=== PATIENT | male | born 1970 | race Caucasian/White ===

== ENCOUNTER 2016-08-21 14:24 | Emergency (ER) | payer MEDICAID ==
[~2016-08-21 14:24] MED LIST: ADDERALL 30 MG30 MG; LORTAB 5/500 TA1 TAB PO; PERCOCET 5/3251 TAB; PERCOCET 5/3251 TAB PO; SEROQUEL300 MG; XANAX2 MG
[2016-08-21] MEDS ORDERED: NO HOME MEDICATION XX (14:38)
== END 2016-08-21 16:32 ==
LOC: EDMED 14:24
PROC: 0S9D3ZZ Drainage of Left Knee Joint, Percutaneous Approach (ICD-10-PCS; principal; 2016-08-21)
PROC: 2W3RXYZ Immobilization of Left Lower Leg using Other Device (ICD-10-PCS; 2016-08-21)
DX: S86.811A Strain of other muscle(s) and tendon(s) at lower leg level, right leg, initial encounter (principal); F17.210 Nicotine dependence, cigarettes, uncomplicated; X58.XXXA Exposure to other specified factors, initial encounter